=== PATIENT | female | born 1995 | race Asian ===

== ENCOUNTER 2020-04-11 12:17 | Emergency (ER) | payer OTHER ==
[~2020-04-11] VITALS: Ht 162.6 cm; Wt 49.9 kg
[2020-04-11 12:17] VITALS: BP 102/72
--- NOTE | 2020-04-11 13:59 | Diagnostic Imaging Report ---
INDICATION: Pain TECHNIQUE: Multiple views of the right hand were obtained COMPARISON: None FINDINGS: There is no acute fracture or dislocation. Joint spaces are maintained. No acute soft tissue abnormality. IMPRESSION: No acute fracture or dislocation.
[2020-04-11] MEDS ORDERED: IBUPROFEN600 M1 ORAL (14:04)
[2020-04-11 14:18] VITALS: BP 102/72
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
== END 2020-04-11 14:19 | disposition home or self-care (01) ==
LOC: EDBD 12:17 → EMR 12:45
DX: S60.221A Contusion of right hand, initial encounter (principal); S80.811A Abrasion, right lower leg, initial encounter; V43.52XA Car driver injured in collision with other type car in traffic accident, initial encounter; Y92.410 Unspecified street and highway as the place of occurrence of the external cause; H92.02 Otalgia, left ear
CPT/HCPCS: 73130; Z7502; 99283